=== PATIENT | male | born 1965 | race Caucasian/White ===

== ENCOUNTER 2020-10-26 21:52 | Inpatient (IN) | payer OTHER ==
[~2020-10-26] VITALS: Ht 185.4 cm; Wt 74.6 kg
[2020-10-26 22:15] LABS: BASOPHILS ABSOLUTE AUTO 0.08 K/mm3 (0.00-0.23); BASOPHILS PERCENT AUTO 1 % (0-2); EOSINOPHILS ABSOLUTE AUTO 0.26 K/mm3 (0.00-0.68); EOSINOPHILS PERCENT AUTO 2 % (0-6); Hematocrit 38.6 % (37.0-53.0); Hemoglobin 12.8 g/dL (13.5-17.5); Mean Corpuscular HGB 31.8 pg (26.0-34.0); Mean Corpuscular HGB Conc 33.2 g/dL (31.5-36.5); Mean Corpuscular Volume 96 fL (80-100); Mean Platelet Volume 9.4 fL (9.1-12.4); Platelet Count 286 K/mm3 (150-400); RDW Coefficient Variation 13.1 % (11.7-14.2); RDW Standard Deviation 46.5 fL (35.1-46.3); Red Blood Cell Count 4.03 M/mm3 (4.30-5.90); White Blood Cell Count 15.66 K/mm3 (4.00-11.30)
[2020-10-26 22:16] LABS: IMMATURE GRAN ABSOLUTE AUTO 0.06 K/mm3 (0.00-0.10); IMMATURE GRAN PERCENT AUTO 0 % (0-1); LYMPHOCYTES ABSOLUTE AUTO 5.57 K/mm3 (0.84-5.20); LYMPHOCYTES PERCENT AUTO 36 % (21-46); MONOCYTES ABSOLUTE AUTO 1.28 K/mm3 (0.16-1.47); MONOCYTES PERCENT AUTO 8 % (4-13); NEUTROPHILS ABSOLUTE AUTO 8.41 K/mm3 (1.96-9.15); NEUTROPHILS PERCENT AUTO 54 % (41-73)
[2020-10-26 22:20] LABS: Calcium, Ionized (POC) 1.11 mmol/L (1.10-1.46); Chloride (POC) 102 mmol/L (98-108); Creatinine (POC) 1.2 mg/dL (0.8-1.3); Glucose (ISTAT POC) 115 mg/dL (70-99); Hemoglobin (POC) 13.6 g/dL (13.5-17.5); Potassium (POC) 3.3 mmol/L (3.5-5.5); Sodium (POC) 140 mmol/L (135-148); Total CO2 (POC) 25 mmol/L (21-32)
[2020-10-26 22:36] LABS: Alanine Aminotransfer (ALT/SGP 21 U/L (12-78); Albumin, Blood 3.1 g/dL (3.4-5.0); Albumin/Globulin Ratio 0.9 (0.8-1.8); Alk Phos 111 U/L (50-136); Anion Gap 7 mmol/L (6-16); Aspartate Aminotrans (AST/SGOT 16 U/L (12-37); BASOPHILS ABSOLUTE MAN 0.15 K/mm3 (0.00-0.23); BASOPHILS PERCENT MAN 1 % (0-2); Bilirubin, Total 0.2 mg/dL (0.1-1.0); Blood Urea Nitrogen 14 mg/dL (8-24); CO2, Blood 26 mmol/L (21-32); Calcium, Blood 8.2 mg/dL (8.5-10.1); Chloride, Blood 107 mmol/L (98-108); Creatinine, Blood 1.08 mg/dL (0.60-1.20); EOSINOPHILS ABSOLUTE MAN 0.15 K/mm3 (0.00-0.68); EOSINOPHILS PERCENT MAN 1 % (0-6); Globulin, Blood 3.5 g/dL (2.2-4.0); Glomerular Filtration Rate >60 (60-); Glucose, Blood 117 mg/dL (70-99); LYMPHOCYTES % ATYPICAL MANUAL 5 % (0-0); LYMPHOCYTES ABSOLUTE MAN 4.07 K/mm3 (0.84-5.20); LYMPHOCYTES PERCENT MAN 21 % (21-46); MONOCYTES ABSOLUTE MAN 1.09 K/mm3 (0.16-1.47); MONOCYTES PERCENT MAN 7 % (4-13); MYELOCYTE ABSOLUTE MAN 0.15 K/mm3 (0.00-0.00); MYELOCYTE PERCENT MAN 1 % (0-0); NEUTROPHILS ABSOLUTE MAN 8.76 K/mm3 (1.96-9.15); OTHER CELL PERCENT MAN 8 % (0-0); Potassium, Blood 3.3 mmol/L (3.5-5.5); SEG NEUTROPHILS PERCENT MAN 56 % (41-73); Sodium, Blood 140 mmol/L (136-145); TOTAL CELLS COUNTED 101; Total Protein, Blood 6.6 g/dL (6.4-8.2); Troponin I <0.015 ng/mL (0.000-0.040)
[2020-10-26 23:19] LABS: Influenza A, PCR NEGATIVE (NEGATIVE); Influenza B, PCR NEGATIVE (NEGATIVE); Resp Syncytial Virus, PCR NEGATIVE (NEGATIVE); SARS-Cov-2 (COVID-19) PCR, MMC NEGATIVE (NEGATIVE)
--- NOTE | 2020-10-27 | NUR ---
PT ARRIVES TO ICU 1 VIA BED AFTER HYDROMETEOROLOGIST AND 2 STENTS TO THE RCA AT 2335 THIS SHIFT, DR GONGORA ARRIVES TO BEDSIDE WITHIN 10 MINUTES OF PT ARRIVAL. PRESSURES NOTED HYPOTENSIVE ON CHANGE TO ICU MONITORS, NS 1 LITER BOLUS ORDERED VERBALLY, TO HANG WITH PRESSURE BAG AT 2355, AT 0000 DR GONGORA STATES TO START SECOND LITER NORMAL SALINE BOLUS ON PRESSURE BAG, PT IS ALERT AND ORIENTED ON ARRIVAL TO ROOM, SINUS RHYTHM 70S ON MONITOR, PRESSURES MENTIONED, SKIN IS DUSKY AND COOL WITH DELAYED CAP REFILL HOWEVER RADIAL PULSES ARE EASILY PALPABLE BILAT. PT DOES ADMIT TO NUMBNESS TO FINGERS OF RIGHT HAND, TR BAND REVIEWED WITH [facility] STAFF, STATES TO REMOVE 2 ML OF AIR FROM TR BAND WHICH WAS DONE WITH GOOD IMPROVEMENT TO FINGER COLORS, SENSATION AND TEMPERATURE. PT WAS SHIVERING ON ARRIVAL AND TEMP WAS 97.2, CAROL HUGGER WAS APPLIED. LUNGS CLEAR WITH DIM MID TO BASES BILAT, SATS 100% WITH OXYGEN VIA NONREBREATHER MASK AT 10 L/MIN, PT DENIES SOB/DYSPNEA, SPEAKING IN FULL SENTENCES. ABD WITH NORMOACTIVE BOWEL TONES, PT STATES LAST BM YESTERDAY, NONTENDER TO PALP. PT STATES FEELING NEED TO VOID, CLEAR YELLOW URINE 100 ML IN URINAL.
--- NOTE | 2020-10-27 01:12 | NUR ---
DR GONGORA CALLED FOR PT UPDATE, DOPAMINE ORDERED INCREASED TO 10 AND TITRATE FOR MAP GREATER THAN 65, DC AGGRASTAT SECONDARY TO HYPOTENSION AND INCREASE IVF TO 125 ML/HR. THIS IS DONE WILL CONT TO MONITOR.
[2020-10-27] MEDS ORDERED: HYDROCODONE-AC1 EAC7 PO (01:19)
[2020-10-27] MEDS ORDERED: MONT10T (01:20)
[2020-10-27] MEDS ORDERED: Robaxin750 MG PO (01:21)
--- NOTE | 2020-10-27 01:40 | NUR ---
TR BAND DEFLATION 2 ML REMOVED FROM TR BAND, SITE REMAINS STABLE, WILL MONITOR
--- NOTE | 2020-10-27 01:54 | NUR ---
TR BAND DEFLATION 2 ML REMOVED FROM TR BAND, SITE REMAINS STABLE, WILL CONT TO MONITOR.
--- NOTE | 2020-10-27 02:14 | NUR ---
TR BAND DEFLATION 2 ML REMOVED FROM TR BAND, SITE REMAINS STABLE, WILL MONITOR.
--- NOTE | 2020-10-27 02:30 | NUR ---
TR BAND DEFLATION 2 ML AIR REMOVED FROM TR BAND, SITE REMAINS STABLE, WILL MONITOR.
--- NOTE | 2020-10-27 02:45 | NUR ---
TR BAND DEFLATION TR BAND DEFLATED AT THIS TIME, SITE REMAINS STABLE, WILL MONITOR.
[2020-10-27 03:24] LABS: Source, Urine Catheter
[2020-10-27 03:26] LABS: Bilirubin, Urine Neg (Neg); Blood, Urine 1+ (Neg); Glucose Qualitative, Urine 1+ (Neg); Ketones, Urine Neg (Neg); Leukocyte Esterase, Urine Neg (Neg); Nitrite, Urine Neg (Neg); Protein, Urine Neg (Neg); Specific Gravity, Urine 1.005 (1.003-1.022); Urobilinogen, Urine NORM (Normal)
[2020-10-27 03:27] LABS: Appearance, Urine Clear (Clear); Color, Urine Yellow (P-Yellow)
[2020-10-27 03:31] LABS: Bacteria Not Seen /hpf; Red Blood Cells, Urine 0-2 /hpf (0-2); Squamous Epithelial Cells Not Seen /hpf (Few); White Blood Cells, Urine 0-2 /hpf (0-5)
--- NOTE | 2020-10-27 03:45 | NUR ---
TR BAND SITE CHECKED Q 10 MINUTES FOR PAST HOUR, THIS CHECK THERE IS SMALL AREA OF BRUISING NOTED PROXIMAL TO TR BAND, 6 ML AIR ADDED TO TR BAND AND BRUISING OUTLINED, WILL MONITOR.
--- NOTE | 2020-10-27 04:15 | NUR ---
TR BAND SITE REMAINS STABLE AT THIS TIME WILL CONT TO MONITOR.
--- NOTE | 2020-10-27 05:45 | NUR ---
TR BAND DEFLATION 2 ML AIR REMOVED, SITE REMAINS STABLE WILL MONITOR
--- NOTE | 2020-10-27 05:55 | NUR ---
TR BAND 2 ML AIR REMOVED FROM TR BAND, SITE REMAINS STABLE, WILL MONITOR.
--- NOTE | 2020-10-27 06:07 | NUR ---
TR BAND FULLY DEFLATED, SITE REMAINS STABLE WILL MONITOR.
--- NOTE | 2020-10-27 06:35 | NUR ---
DR LARA IN TO SEE PT, HEMODYNAMICS REVIEWED, DOPAMINE GTT DECREASED TO 5 MCG/KG/MIN AND NS DECREASED TO 50 ML/HR PER ORDERS. REVIEWED RIGHT RADIAL ACCESS SITE WITH THIS RN. INTAKE AND OUTPUT REVIEWED WITH MD. PT REMAINS ALERT AND ORIENTED ALTHOUGH REPORTS THAT HE IS TIRED AND WOULD LIKE TO SLEEP. CONTINUES TO DENY CHEST PAIN/PRESSURE WELL SOB/DYSPNEA.
[2020-10-27 06:49] LABS: BASOPHILS ABSOLUTE AUTO 0.03 K/mm3 (0.00-0.23); BASOPHILS PERCENT AUTO 0 % (0-2); EOSINOPHILS ABSOLUTE AUTO 0.03 K/mm3 (0.00-0.68); EOSINOPHILS PERCENT AUTO 0 % (0-6); Hematocrit 35.4 % (37.0-53.0); IMMATURE GRAN ABSOLUTE AUTO 0.04 K/mm3 (0.00-0.10); IMMATURE GRAN PERCENT AUTO 0 % (0-1); LYMPHOCYTES ABSOLUTE AUTO 1.91 K/mm3 (0.84-5.20); LYMPHOCYTES PERCENT AUTO 16 % (21-46); MONOCYTES ABSOLUTE AUTO 1.07 K/mm3 (0.16-1.47); MONOCYTES PERCENT AUTO 9 % (4-13); Mean Corpuscular HGB 32.6 pg (26.0-34.0); Mean Corpuscular HGB Conc 33.9 g/dL (31.5-36.5); Mean Corpuscular Volume 96 fL (80-100); Mean Platelet Volume 9.6 fL (9.1-12.4); NEUTROPHILS PERCENT AUTO 75 % (41-73); Platelet Count 246 K/mm3 (150-400); RDW Coefficient Variation 13.2 % (11.7-14.2); RDW Standard Deviation 46.6 fL (35.1-46.3); Red Blood Cell Count 3.68 M/mm3 (4.30-5.90); White Blood Cell Count 12.08 K/mm3 (4.00-11.30)
[2020-10-27 07:05] LABS: Alanine Aminotransfer (ALT/SGP 50 U/L (12-78); Albumin, Blood 2.9 g/dL (3.4-5.0); Albumin/Globulin Ratio 0.9 (0.8-1.8); Alk Phos 120 U/L (50-136); Anion Gap 6 mmol/L (6-16); Aspartate Aminotrans (AST/SGOT 152 U/L (12-37); Bilirubin, Direct 0.1 mg/dL (0.0-0.3); Bilirubin, Indirect 0.3 mg/dL (0.1-0.7); Bilirubin, Total 0.4 mg/dL (0.1-1.0); Blood Urea Nitrogen 9 mg/dL (8-24); Bun/Creatinine Ratio 13.1 (12.0-20.0); CHOL/HDL RATIO 3.5; CO2, Blood 22 mmol/L (21-32); Calcium, Blood 7.5 mg/dL (8.5-10.1); Chloride, Blood 113 mmol/L (98-108); Cholesterol 118 mg/dL (50-200); Creatinine, Blood 0.69 mg/dL (0.60-1.20); Globulin, Blood 3.4 g/dL (2.2-4.0); Glomerular Filtration Rate >60 (60-); Glucose, Blood 113 mg/dL (70-99); HDL Cholesterol 34 mg/dL (>39); LDL/HDL RATIO 1.4; Low Density Lipoprotein Chol 49 mg/dL (0-110); Potassium, Blood 4.4 mmol/L (3.5-5.5); Sodium, Blood 141 mmol/L (136-145); Total Protein, Blood 6.3 g/dL (6.4-8.2); Triglycerides 176 mg/dL (30-160); Very Low Density Lipoprot Chol 35 mg/dL (6-32)
--- NOTE | 2020-10-27 10:44 | NUR ---
CARE ASSUMED ASSESSMENTS COMPLETED. PT WAKES EASILY TO VOICE, ORIENTED X4, APPRPRIATE AND COOPERATIVE. HR SINUS 60'S-70'S, BP HYPOTENSIVE, DOPAMINE 5MCG TO MAINTAIN MAP >60, UNABLE TO TITRATE DOWN AT THIS TIME. SPO2 90'S ON RA, LS CLEAR, DIM IN BASES, NO COUGH NOTED. PT DENES CHEST PAIN OR SOB. R RADIAL ACCESS SITE WITH HEMATOMA AND BRUISING, HEMATOMA REMAINS INSIDE BOUNDARY LINES PLACED BY NOC NURSE. TR BAND REMOVED PER PROTOCOL, OCCLUSIVE WINDOW DRESSING PLACED, NO OOZING NOTED AFTER TR BAND REMOVAL. WRIST IMMOBILIZER IN PLACE ON R ARM. 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 PT NOW RESTING IN BED WITH EYES CLOSED, VSS WITH DOPAMINE. WILL CONTINUE TO MONITOR.
--- NOTE | 2020-10-27 12:21 | NUR ---
UPDATE PT REMAINS APPROPRIATE AND COOPERATIVE, UNSUCCESSFUL IN TITRATING DOPAINE DOWN MAP'S DROP BELOW 60. R RADIAL ACCESS SITE UNCHANGED, NO ADDITIONAL BLEEDING OR OOZING NOTED, DRESSING CDI, IMMOBILIZER REMAINS IN PLACE. HR 60'S-70'S SINUS, NO ECTOPY NOTED, PT DENIES CHEST PAIN/SOB, REMAINS ON RA, SPO2 93%. PT RECEIVING ECHO AT THIS TIME.
--- NOTE | 2020-10-27 19:15 | NUR ---
END OF SHIFT PT C/O SOME MID CHEST PAIN THIS AFTERNOON WITHOUT RADIATION, STATES PAIN WAS WITH DEEP BREATHS AND MADE HIM FEEL LIKE HE WAS UNABLE TO TAKE A FULL BREATH. O2 APPLIED AT 2L/NC PER PT REQUEST FOR COMFORT, NORCO ADMINISTERED. TROPONIN PEAKED EARLY THIS AFTERNOON AND IS NOW 26.6, HR SINUS/SBR 49-80, IS SAMY WHILE SLEEPING. BP REMAINS HYPOTENSIVE, DOPAMINE AT 2.5MCG TO KEEP MAP >60, PT DENIES DIZZINESS. MEDICATED X2 FOR CHRONIC BACK PAIN AND ONCE FOR NAUSEA AFTER EATING. R RADIAL ACCESS SITE REMAINS UNCHANGED, SITE SOFT, RADIAL PULSE STRONG. DRESSING CDI, WRIST IMMOBILIZER REMAINS IN PLACE. LS CLEAR, DIM IN BASES, NO COUGH NOTED, PT ON RA AT THIS TIME, SPO2 95%. SCDS ON, CARLISLE DRAINING, PT PLEASANT AND COOPERATIVE. FAMILY VISITED THIS AFTERNOON. REPORT TO ONCOMING SHIFT.
--- NOTE | 2020-10-28 00:40 | NUR ---
ASSUMPTION OF CARE/HAND OFF ASSUMED CARE OF PT @ 2000, PT ALERT AND ORIENTED IN BED, REPORTS 5/10 BURNING CHEST PAIN THAT IS WORSE WITH INSPIRATION, STS THE PAIN IS NOT THE SAME PRIOR TO ARRIVING TO THE HOSPITAL. O2 SATURATIONS> 90% ON RA, 2L PER NC AVAILABLE PRN FOR COMFORT. MONITOR SHOWS SINUS RHYTHM WITH HR 50'S-60'S, DOPAMINE INFUSING TO MAINTAIN MAPS> 60, SEE FLOWSHEET FOR TITRATIONS. R RADIAL SITE STABLE, SOFT AND NON TENDER, BRUISING NOTED, PREVIOUS OUTLINE PRESENT, WRIST IMMOBILIZER IN PLACE. PT TOLERATING PO INTAKE, SWALLOWS PILLLS WHOLE WITH WATER. CARLISLE IN PLACE WITH GOOD URINE OUTPUT. CALL LIGHT WITHIN REACH, PT USING APPROPRIATELY. REPORT GIVEN TO DAYANNA GARCIA.
--- NOTE | 2020-10-28 01:21 | NUR ---
ASSUMED CARE OF PT AT 0000, RECEVIED REPORT FROM NAYANA GARCIA. PT IS ALERT AND ORIENTEDX4, ABLE TO COMMUNICATE NEEDS EFFECTIVLEY. PT IS ON RA WITH SP02 ABOVE 90% NO RESP DISTRESS NOTED. PT IS IN NSR WITH HR IN THE 50-60'S, PER MONITOR. PT ON DOPAMINE @ 3MCG/KG/MIN, TO MAINTAIN MAP GREATER THAN 60. SBP IN THE 100'S. PT DENIES ANY CHEST PAIN AT THIS TIME. RIGHT RADIAL SITE IS FREE FROM SIGNS OF BLEEDING, SLIGHT TENDER TO THE TOUCH, SOME BRUSING TO THE SITE. BRUSING OUTLINED WITH MARKER, NO INCREASE IN SIZE NOTED. IMMOBILIZER TO RIGHT WRIST IN PLACE. CARLISLE IS PATENT, DRAINING TO GRAVITY. WILL CONTINUE TO MONITOR PT T/O.
--- NOTE | 2020-10-28 04:11 | NUR ---
ASSUED CARE OF PT FROM DAYANNA. PT MED WITH NORCO FOR BACK PAIN BY DAYANNA. DOPAMINE AT 3 MCQ/KG/MIN TO KEEP MAP GREATER THAN 60.
[2020-10-28 06:20] LABS: BASOPHILS ABSOLUTE AUTO 0.03 K/mm3 (0.00-0.23); BASOPHILS PERCENT AUTO 0 % (0-2); EOSINOPHILS PERCENT AUTO 1 % (0-6); Hematocrit 36.6 % (37.0-53.0); Hemoglobin 11.9 g/dL (13.5-17.5); IMMATURE GRAN ABSOLUTE AUTO 0.03 K/mm3 (0.00-0.10); IMMATURE GRAN PERCENT AUTO 0 % (0-1); LYMPHOCYTES ABSOLUTE AUTO 2.12 K/mm3 (0.84-5.20); LYMPHOCYTES PERCENT AUTO 20 % (21-46); MONOCYTES ABSOLUTE AUTO 1.05 K/mm3 (0.16-1.47); MONOCYTES PERCENT AUTO 10 % (4-13); Mean Corpuscular HGB 31.6 pg (26.0-34.0); Mean Corpuscular HGB Conc 32.5 g/dL (31.5-36.5); Mean Corpuscular Volume 97 fL (80-100); Mean Platelet Volume 9.3 fL (9.1-12.4); NEUTROPHILS PERCENT AUTO 69 % (41-73); Platelet Count 232 K/mm3 (150-400); RDW Coefficient Variation 13.2 % (11.7-14.2); RDW Standard Deviation 47.6 fL (35.1-46.3); Red Blood Cell Count 3.77 M/mm3 (4.30-5.90); White Blood Cell Count 10.83 K/mm3 (4.00-11.30)
[2020-10-28 06:40] LABS: Anion Gap 5 mmol/L (6-16); Blood Urea Nitrogen 9 mg/dL (8-24); Bun/Creatinine Ratio 13.4 (12.0-20.0); CO2, Blood 24 mmol/L (21-32); Calcium, Blood 8.4 mg/dL (8.5-10.1); Chloride, Blood 113 mmol/L (98-108); Creatinine, Blood 0.67 mg/dL (0.60-1.20); Glomerular Filtration Rate >60 (60-); Glucose, Blood 95 mg/dL (70-99); Sodium, Blood 142 mmol/L (136-145)
--- NOTE | 2020-10-28 09:00 | NUR ---
CARE ASSUMED ASSESSMENTS COMPLETED, PT ORIENTED AND APPROPRIATE. LS REMAIN CLEAR, DIM IN BASES, PT ON RA WITH SPO2 >95%, PT DENIES SOB. HR 60'S SINUS, BP STABLE AT THIS TIME WITH DOPAMINE 4MCG, PT DENIES CHEST PAIN. R RADIAL ACCESS SITE STABLE, HEMATOMA HEALING, DRESSING CDI. SITE SOFT, RADIAL PULSE STRONG. WRIST IMMOBILIZER REMOVED, PT CAUTIOUS OF R WRIST USE. DR. BATRES IN TO ASSESS, NS BOLUS INFUSING, WILL ATTEMPT TO TITRATE DOPAMINE DOWN AFTER BOLUS COMPLETED. PT TOLERATING FOOD AND PO MEDS WITHOUT DIFFICULTY. BLOOD CULTURES DRAWN, DR. FONSECA IN TO ASSESS.
--- NOTE | 2020-10-28 12:38 | NUR ---
UPDATE DOPAMINE TITRATED OFF THIS MORNING AFTER BOLUS, BP REMAINS STABLE WITH MAP'S 70'S. PT CONTINUES TO DENY SOB AND CP, HR 60-70'S SINUS. PT EATING LUNCH, DENIES C/O. MAYLIN SADLER.
--- NOTE | 2020-10-28 18:27 | NUR ---
END OF SHIFT PT HAD UNEVENTFUL AFTERNOON, NO C/O CHEST PAIN OR SOB. HR REMAINS 60'S-70'S SINUS, NO BRADYCARDIA NOTED TODAY. DOPAMINE GTT OFF SINCE THIS MORNING, MAPS REMAIN 70'S. LS CLEAR, PT ON RA TODAY WITH NO REPORTS OF SOB. PT TOLERATED MEALS WELL, APPETITE GOOD. VOIDING WITHOUT DIFFICULTY SINCE CARLISLE WAS DC'D, URINE CLEAR YELLOW. PT PCU STATUS, REPORT TO ONCOMING SHIFT.
--- NOTE | 2020-10-28 21:00 | NUR ---
ASSUMPTION OF CARE PT AWAKE IN BED, ORIENTED x4, DENIES CP/SOB, REPORTS 6/10 BACK PAIN WHICH IS MANAGEABLE FOR HIM. PT ON RA WITH O2 SATURATIONS> 90%, MONITOR SHOWS SINUS RHYTHM WITH HR 60'S, BP STABLE. PT TOLERATING PO INTAKE, SWALLOWS PILLS WHOLE WITH WATER, DENIES GI/ ISSUES, USING URINAL INDEPENDENTLY AT BEDSIDE. R RADIAL SITE STABLE, NON TENDER, BRUSING IMPROVING. CALL LIGHT WITHIN REACH, PT USING APPROPRIATELY.
[2020-10-29 06:22] LABS: BASOPHILS ABSOLUTE AUTO 0.06 K/mm3 (0.00-0.23); BASOPHILS PERCENT AUTO 1 % (0-2); EOSINOPHILS ABSOLUTE AUTO 0.15 K/mm3 (0.00-0.68); EOSINOPHILS PERCENT AUTO 2 % (0-6); Hematocrit 37.4 % (37.0-53.0); Hemoglobin 12.4 g/dL (13.5-17.5); IMMATURE GRAN ABSOLUTE AUTO 0.02 K/mm3 (0.00-0.10); IMMATURE GRAN PERCENT AUTO 0 % (0-1); LYMPHOCYTES ABSOLUTE AUTO 2.54 K/mm3 (0.84-5.20); LYMPHOCYTES PERCENT AUTO 28 % (21-46); MONOCYTES PERCENT AUTO 11 % (4-13); Mean Corpuscular HGB 31.6 pg (26.0-34.0); Mean Corpuscular HGB Conc 33.2 g/dL (31.5-36.5); Mean Corpuscular Volume 95 fL (80-100); Mean Platelet Volume 9.3 fL (9.1-12.4); NEUTROPHILS ABSOLUTE AUTO 5.38 K/mm3 (1.96-9.15); NEUTROPHILS PERCENT AUTO 59 % (41-73); Platelet Count 225 K/mm3 (150-400); RDW Standard Deviation 45.9 fL (35.1-46.3); Red Blood Cell Count 3.93 M/mm3 (4.30-5.90); White Blood Cell Count 9.15 K/mm3 (4.00-11.30)
--- NOTE | 2020-10-29 06:24 | NUR ---
SHIFT SUMMARY PT SLEPT WELL T/O THE NIGHT, REMAINED CP FREE T/O SHIFT. PT REMAINS ON RA, VSS. PT CONTINUES TO REPORT BACK PAIN, NORCO ADMINISTERED ORDERED. PT TOLERATES PO INTAKE, VOIDS INDEPENDENTLY WITH URINAL AT BEDSIDE, CALL LIGHT WITHIN REACH, PT USING APPROPRIATELY.
[2020-10-29 06:38] LABS: Anion Gap 4 mmol/L (6-16); Blood Urea Nitrogen 11 mg/dL (8-24); CO2, Blood 23 mmol/L (21-32); Calcium, Blood 8.5 mg/dL (8.5-10.1); Chloride, Blood 113 mmol/L (98-108); Creatinine, Blood 0.73 mg/dL (0.60-1.20); Glomerular Filtration Rate >60 (60-); Glucose, Blood 85 mg/dL (70-99); Sodium, Blood 140 mmol/L (136-145)
[2020-10-29] MEDS ORDERED: LEVFLO500 PO (11:22)
[2020-10-29] MEDS ORDERED: CARV3.125 PO (11:23)
[2020-10-29] MEDS ORDERED: ASPI81CH PO (11:24)
[2020-10-29] MEDS ORDERED: CLOP75 PO (11:24)
[2020-10-29] MEDS ORDERED: ATOR80 PO (11:24)
[2020-10-29] MEDS ORDERED: NICO21TP TOP (11:25)
--- NOTE | 2020-10-29 12:01 | NUR ---
DISCHARGE INSTRUCTIONS GONE OVER WITH PT AND FAMILY. INSTRUCTED PT ON NEW MEDICATIONS AND WHEN TO START NEXT DOSE. PRESCRIPTIONS CALLED INTO [facility] ON [facility] IN [place] PER PT REQUEST. BELONGINGS GATHERED AND GIVEN TO PT. PT AMBULATED OUT OF ICU, ESCORTED BY .
== END 2020-10-29 12:00 | disposition home or self-care (01) | DRG 246 ==
LOC: ER 21:52 → ICUW 22:10 → ICUE 23:27
PROVIDERS: Emergency Medicine; Internal Medicine; ADMIT Internal Medicine Cardiovascular Disease
PROC: 027035Z Dilation of Coronary Artery, One Artery with Two Drug-eluting Intraluminal Devices, Percutaneous Approach (ICD-10-PCS; principal; 2020-10-26)
PROC: 4A023N7 Measurement of Cardiac Sampling and Pressure, Left Heart, Percutaneous Approach (ICD-10-PCS; 2020-10-26)
PROC: B2111ZZ Fluoroscopy of Multiple Coronary Arteries using Low Osmolar Contrast (ICD-10-PCS; 2020-10-26)
DX: I21.19 ST elevation (STEMI) myocardial infarction involving other coronary artery of inferior wall (principal); J18.9 Pneumonia, unspecified organism; Z20.822 Contact with and (suspected) exposure to COVID-19; I25.10 Atherosclerotic heart disease of native coronary artery without angina pectoris; F17.210 Nicotine dependence, cigarettes, uncomplicated; G89.29 Other chronic pain; I95.81 Postprocedural hypotension; Z79.899 Other long term (current) drug therapy; Z79.891 Long term (current) use of opiate analgesic; Z88.8 Allergy status to other drugs, medicaments and biological substances; Z88.5 Allergy status to narcotic agent; Z88.0 Allergy status to penicillin
CPT/HCPCS: 0241U; 36415; 51702; 71045; 76937; 80047; 80048; 80053; 80061; 80076; 81001; 83605; 83880; 84145; 84484; 85014; 85025; 85347; 87040; 93005; 93010; 93306; 93458; 96374-59; 96375-59; 99152; 99153; 99285-25; A9270; C1725; C1769; C1874; C1887; C1894; C9606; J0153; J0461; J1265; J1644; J1956; J2250; J2270; J2370; J2405; J3010; J3246; J3480; J7030; J7050; Q9967